=== PATIENT | female | born 1975 | race Caucasian/White ===

== ENCOUNTER 2016-06-06 09:21 | Outpatient (CLI) | payer MEDICAID | END 2016-06-06 09:22 | disposition home or self-care (01) | DX: Z00.00 Encounter for general adult medical examination without abnormal findings (principal); Z86.39 Personal history of other endocrine, nutritional and metabolic disease ==

== ENCOUNTER 2016-11-22 08:00 | Outpatient (CLI) | payer MEDICAID ==
[2016-11-22 21:08] LABS: BILIRUBIN,URINE NEGATIVE (NEGATIVE); PH,URINE 7.5 PH (5.0-7.5)
[2016-11-22 21:39] LABS: UR CULTURE IF IND NOT INDICATED
== END 2016-11-22 08:01 | disposition home or self-care (01) ==
LOC: LAB.R 08:00
PROVIDERS: ATTEND Radiology Diagnostic Radiology
DX: N39.0 Urinary tract infection, site not specified (principal)
CPT/HCPCS: 81001; 87086

== ENCOUNTER 2016-12-06 13:48 | Outpatient (CLI) | payer MEDICAID ==
[2016-12-06 18:12] LABS: BILIRUBIN,URINE NEGATIVE (NEGATIVE)
[2016-12-06 18:34] LABS: UR CULTURE IF IND INDICATED; WBC,URINE 0-3 /HPF (0-5)
== END 2016-12-06 13:49 | disposition home or self-care (01) ==
LOC: LAB.R 13:48
PROVIDERS: ATTEND Nurse Practitioner Family
DX: N39.0 Urinary tract infection, site not specified (principal)
CPT/HCPCS: 81001; 87086